=== PATIENT | male | born 1960 | race Caucasian/White ===

== ENCOUNTER 2017-01-05 06:42 | Day surgery (SDC) | payer OTHER ==
[2017-01-05] VITALS (10 sets, daily range): BP systolic 112–132; BP diastolic 66–93; PULSE 50–70; RESP 9–16; O2SAT 97–100
[~2017-01-05] VITALS: Ht 174.6 cm; Wt 80.3 kg
[~2017-01-05 06:42] MED LIST: CeFAZolin Inj 2 GM in IV Premix 1 EACH IV ONE; FEXO-123 PO; Lactated Ringer's 1,000 ML IV SCH; MULT-1018 PO; NAPR220C11 PO
[2017-01-05] MEDS ORDERED: Glycopyrrolate 0.2 MG/ML 1mL Inj ONE (06:43)
[2017-01-05] MEDS ORDERED: fentaNYL-PF 50 mCg/mL 20 mL Inj ONE (06:43)
[2017-01-05] MEDS ORDERED: Propofol 10,000 mCg/mL 20 mL Inj ONE (06:43)
[2017-01-05] MEDS ORDERED: Ondansetron 2 mg/mL 2 mL Inj ONE (06:43)
[2017-01-05] MEDS ORDERED: Dexamethasone 4 mg/mL Inj ONE (06:43)
[2017-01-05] MEDS ORDERED: Lactated Ringer's 1,000 ML IV ONE (08:56)
--- NOTE | 2017-01-05 11:04 | PCM.HPANE ---
Patient Data Surgeon Admitting Provider: Attending Provider:Prudencio Gutierrez MD Primary Care Physician:Victor Hugo Other Provider: Reason for Visit Left Knee Acl Tear Ht/WT & BMI Height (Feet): 5 Height (Inches): 8.75 Weight (Kilograms): 80.286 Body Mass Index 26.00 Allergies Coded Allergies: No Known Allergies (Unverified , 12/30/16) Past Anesthesia History Anesthesia History: Denies:: Anesthesia Reactions, Malignant Hyperthermia Diabetes History Hx Diabetes?: No MRSA MRSA: No Medications Hypertension Medication: No Home Meds Incl Beta Anselmo: No Reported Medications Multivitamin (Multi Vitamin Daily)1 Each Tablet1 Each PO DAILY 30 Days Ref 0 12/30/16 Fexofenadine (Aller-Ease)60 Mg [id number] Mg PO BID 12/30/16 Naproxen Sodium (Aleve)220 Mg [id number] Mg PO BID PRN PRN 12/30/16 History History of ENT Problems?: Yes HEENT History: Positive for:: Sinus Problem (allergic rhinitis hx recurrent epistaxis) Hx of Heart Problems?: No Cardiovascular History: Denies:: Heart Murmur Hypertension Other Cardiac History: > 4 METS Hx of Respiratory Problem?: No Respiratory History: Denies:: Use of C-PAP Machine Hx Neurologic Problems?: No Hx of GI Problems?: Yes Other GI Pertinent History: S/P APPY,RT INGUINAL HERNIA RPR Hx of Problems?: Yes Other Pertinent History: HX OF ED Male Hx: Denies:: Prostate Problems Scrotal Mass Testicular Surgery Skin History: Positive for:: History Skin Disorders? (S/P EXC LIPOMA ??SITE ) Denies:: Pressure Ulcers Hx Musculoskeletal Problems?: Yes Musculoskeletal History: Positive for:: Musculoskeletal Trauma (HX FX TOES LT KNEE ACL TEAR/LT PARTIAL MENISCUS TEAR=CURRENT PROBLEM) Hx of Psycho/Social Problems?: No Hx Surgeries?: Yes (EXC. LIPOMA,APPY,RT INGUINAL HERNIA RPR) Hx Any Other Health Problems?: Yes Other History: Denies:: Cancer Endocrine Disease Hospitalization Thyroid Disease Hx Diabetes: No Hx Substance Use: NoHave You Smoked inLast 12 mo: No Stop/Bang S-Snoring: Do You Snore Loudly: No T-Tired: feel tired, fatigued: No O-Obsered: Observed not breath: No P-Blood Pressure: treated: No B- Body Mass Index > 35 kg/m2: No A- Age over 50: Yes N- Neck Large Circumference: No G- Gender Male: Yes BEKA Total Score: 2 BEKA Risk Assessment: Low Risk, <3 Yes Risk Assessment Category Category 1A: Patient has history of documented sleep apnea, and HAS NOT received any narcotic, sedative or anesthesia administration during this stay. Category 1B: Patient has history of documented sleep apnea, and HAS received any narcotic , sedative or anesthesia administration during this stay Category 2: Patient has SUSPECTED Obstructive Sleep Apnea, and HAS received any narcotic , sedative or anesthesia administration during this stay. Category 3: Patient has SUSPECTED Obstructive Sleep Apnea and HAS NOT received narcotic, sedative or anesthesia administration during this stay. Category 4: Outpatient in Procedural Areas with known sleep apnea or who screen positive for High Risk via the STOP/BANG questionnaire. Exam Exam Vital Signs Vital Signs Date Time Temp Pulse Resp B/P Pulse Ox O2 Delivery O2 Flow Rate FiO2 01/05/17 08:49 35.9 50 14 112/66 98 Room Air General Appearance: Alert, Oriented X3, Cooperative, No Acute Distress HEENT/AIRWAY: MP 1 Lungs: Clear to Auscultation, Normal Air Movement Heart: Exam Unremarkable, Regular Rate/Rhythm, No Murmurs/Rubs/Gallops Meds/Labs/Diagnostics Admission Meds Current Medications Lactated Ringer's (Lr) 1,000 ml @ ud STK-MED ONCE IV Last administered on 01/05t 08:56; Start 01/05/17 at 08:56; Stop 01/05/17 at 08:57; Status DC Plan Impression Patient chart reviewed, patient interviewed and anesthestic plan with risks, benefits, and alternatives discussed, and informed consent obtained. NPO Status: 01/04@1800 ASA Physical Status: ASA1 Normal Healthy Anesthetic Plan: GA, Regional Block (AC block) Bene/Risks/Altern/Consents: Yes HP Complete Prior to Induction: Yes Maxwell Chavez MD Jan 05, 2017 09:36
[2017-01-05] MEDS ORDERED: Ondansetron 2 mg/mL 2 mL Inj IVPUSH PRN (11:05)
[2017-01-05] MEDS ORDERED: HYDROmorphone 1 mg/mL Inj IVPUSH PRN (11:05)
[2017-01-05] MEDS ORDERED: Lactated Ringer's 500 ML IV PRN (11:05)
[2017-01-05] MEDS ORDERED: fentaNYL-PF 50 mCg/mL 2 mL Inj IVPUSH PRN (11:05)
[2017-01-05] MEDS ORDERED: Labetalol 5 mg/mL 4 mL Inj IV PRN (11:05)
[2017-01-05] MEDS ORDERED: Lactated Ringer's 1,000 ML IV SCH (11:05)
[2017-01-05] MEDS ORDERED: Phenylephrine 10,000 mCg/mL Inj IVPUSH PRN (11:05)
[2017-01-05] MEDS ORDERED: Atropine 0.4 mg/mL Inj IVPUSH PRN (11:05)
[2017-01-05] MEDS ORDERED: MetoCLOpramide 5 mg/mL 2 mL Inj IVPUSH PRN (11:05)
[2017-01-05] MEDS ORDERED: EPHEDrine Sulfate 50 mg/mL Inj IVPUSH PRN (11:05)
[2017-01-05] MEDS ORDERED: Ropivacaine-PF 0.5% 30 mL Inj INFILTRATE ONE (12:06)
[2017-01-05] MEDS ORDERED: HYDROcodone-APAP 5-325 mg Tablet PO PRN (12:25)
--- NOTE | 2017-01-05 12:38 | PCM.ORTHOP ---
Orthopedic Operative Report Date of Service: Jan 05, 2017 Pre Operative Diagnosis Left knee anterior cruciate ligament tear, medial meniscus tear Post Operative Diagnosis Same Procedure Left knee arthroscopy, partial medial meniscectomy, anterior cruciate ligament reconstruction with tibial anterior allograft, chondroplasty, partial synovectomy Surgeon Surgeon: Prudencio Gutierrez MD Assistants: Wilber Lnogo Indication for Procedure Left knee anterior cruciate ligament tear Findings Per dictation Details of Procedure PROCEDURE: 1. Surgical arthroscopy of the left knee with anterior cruciate ligament reconstruction with tibialis anterior allograft. Fixation is an Arthrex endobutton and a 8-10 bio IntraFix. 2. partial medial meniscectomy 3 Limited chondroplasty 4. Partial synovectomy, MAJOR ASSEMBLY INSPECTOR SURGEON: During the operation, the services of a physician surgical garment assembly supervisor were medically indicated and necessary to provide exposure of the operative site for the surgical procedure and to maintain the limb in a proper position to carry out the operation safely and efficiently. Without the qualified hair or beauty salon assistant being present, it would have extended the operative procedure and made the procedure technically more difficult to perform. INDICATIONS: The patient is Tyler Adkins who is a 56-year-old male patient with a prolonged history of left knee giving way. The patient has had continued episodes of instability. The patient has restored their range of motion and is now brought to the operating room for ACL reconstruction, possible partial medial and lateral meniscectomy versus medial and lateral meniscal repair, chondroplasty and debridement. The risks, benefits, and alternatives of surgery were discussed with the patient. The risks included but were not limited to infection, bleeding, damage to vessels and nerves, loss of motion, continued pain, re-tear of the meniscus, deep venous thrombosis, and complications due to anesthesia including nerve injury, myocardial infarction, stroke, , etc. The patient stated understanding of the nature of the surgical procedure and gave written and verbal consent to proceed. PROCEDURE: The patient was brought to the operating room and placed supine on the operating room table. General anesthesia was induced and an adductor canal block was placed. The left lower extremity was examined under anesthesia. Range of motion was 0 degrees of hyperextension to 135 degrees of flexion. There was no varus or valgus or posterolateral instability. The patient had no instability to varus or valgus stress at 0 or 30 degrees. The patient had a 2+ Asuncion and drawer with a positive pivot shift. The left lower extremity was then prepped and draped in the usual fashion. A tourniquet was placed proximally on the thigh over a bias stockinette. A standard anterolateral parapatellar stab wound was created. The knee joint was entered with a blunt-tipped obturator, followed by the 30-degree video arthroscope. An anteromedial portal was established under arthroscopic control. A routine arthroscopic survey was performed. The suprapatellar pouch was unremarkable. The undersurface of the patella was well-preserved with grade 1/2 chondromalacia. The patella appeared to track centrally within the trochlear groove. The medial and lateral gutters were inspected and there was no loose body seen. There was no hypertrophied plica. The popliteal hiatus was entered and was unremarkable. The lateral compartment was entered. The articular surfaces of the lateral femoral condyle was largely well maintained. There was no chondromalacia adjacent to the notch. There was no chondromalacia along the central aspect of the weight bearing lateral tibial plateau. The lateral meniscus was intact and stable to probing. The intercondylar notch was visualized. The anterior cruciate ligament was torn from it's femoral origin. There was an empty lateral wall. Posteromedially there was no loose body seen. The posterior cruciate ligament was visualized and appeared intact. The medial compartment was entered. The articular surfaces of the medial femoral condyle and medial tibial plateau were visualized. There was garde 2/3 chondromalacia noted on the medial femoral condyle and on the medial tibial plateau. The medial meniscus was visualized and a posterior horn horizontal degenerative meniscus tear was noted. A partial meniscectomy was performed with the shaver and biter. Attention was turned to reconstruction of the anterior cruciate ligament. Following exsanguination with an Esmarch bandage the tourniquet was inflated to 250 mm of mercury. Using a motorized shaver a notchplasty was performed, exposing the lateral wall and roof of the notch, identifying the teft-hcq-dge position. The stump of the anterior cruciate ligament was debrided. An Arthrex guide was placed intra-articularly between the tibial spines in line with the anterior horn of the lateral meniscus. A John wire was then inserted into the knee through a 2 cm incision made over the proximal medial tibia. The incision was deepened through the subcutaneous tissue with subperiosteal dissection achieved. Bleeding points were coagulated with the Bovie electrocautery. A fresh frozen tibialis allograft was opened and prepared at the back table, accommodating a 9.5 mm graft on the femoral side and 9.5 mm graft on the tibial side. Tibial drilling was then carried out first with a 5 mm followed by a 10 mm cylindrical reamer with the guide set at 55 degrees. The Beath pin was drilled out the femoral cortex and skin. The femoral tunnel was then created,with an Arthrex flipcutter. Depth-gauging confirmed a tunnel length of 40 mm. An Arthrex EndoButton was selected. The graft was inserted intra-articularly and the EndoButton was deployed. The graft was cycled for 17 cycles with 25 pounds of force to pre-load the graft. Tibial fixation was carried out using a 8-10 PEEK Intra-Fix in 10 degrees of flexion with a posterior drawer. At the completion of surgery the patient had a firm stable Asuncion. The patient had a 0 firm Asuncion and a negative pivot shift. There was no evidence for any roof or lateral wall impingement. The tourniquet was deflated at 40 minutes. The knee was irrigated with two liters of lactated Ringer's solution. Excess fluid was drained. The tibial wounds were then copiously irrigated with bacitracin solution and closed in layers with #0, #2-0 and #3-0 Vicryl. The skin was reapproximated with #4-0 Monocryl. The knee was injected with 20 cc of 0.5% plain ropivacaine and 4 mg of Duramorph. A dry sterile dressing was applied, followed by a bulky bandage and LANA stocking. A postoperative TROM brace was applied locked in full extension. The patient was awakened in the Operating Room and transported to the Recovery Room in satisfactory condition. The patient appeared to tolerate the procedure well. At the completion of surgery the patient had soft compartments, palpable pulses, and brisk capillary refill. There were no complications noted. Please keep dressing clean dry and intact. Do not remove dressing until follow- up in clinic. If the dressing become soaked, you may remove the outer gauze and placed Band-Aids on the wounds. You may weight-bear as tolerated with the brace on at all times. Do Not Bend Your Knee. You may place a pillow under your heel and NOT your knee. You will follow up in clinic in 10-14 days for suture removal, and placement of new Steri-Strips. You will follow-up with me in clinic, and we will start physical therapy. You will follow-up with my PA every 6 weeks while you progress in your rehab and will be released once cleared by PT around 9-12 months. Please see me prior to full release. Please keep the affected extremity elevated when possible. Please take aspirin as insructed if prescribed. You will take antibiotics 4 times daily for 3 days. You may use ice and/or heat as needed for comfort. (preferably ice during the first 48-72 hours Please feel free to call with any further questions, comments , and/or concerns. Grafts, Implants: Implants-See Implant Record Complications There were no periprocedural complications identified. Condition Stable Anesthetic Administered: GA Catheters: None Output, Estimated Blood Loss: 15 Blood Admin during surgery: No Surgical Cast or Splint: Knee Immobilizer Surgical Specimen Removed: No Specimen sent to Pathology: No copies to: Prudencio Gutierrez MD, Christopher L MD Jan 05, 2017 12:38
--- NOTE | 2017-01-05 12:54 | PCM.ANEP1 ---
Post Anesthesia Phase 1 PACU Phase 1 Assessment Date of Service: Jan 05, 2017 Vital Signs Vital Signs Date Time Temp Pulse Resp B/P Pulse Ox O2 Delivery O2 Flow Rate FiO2 01/05/17 12:50 63 13 118/85 100 Room Air 01/05/17 12:45 36.0 66 15 126/76 99 Room Air 01/05/17 12:35 64 13 126/76 100 Room Air 01/05/17 12:30 66 12 125/84 99 Room Air 01/05/17 12:25 65 9 128/75 100 Room Air 01/05/17 12:22 36.4 68 12 118/71 100 Room Air 01/05/17 08:49 35.9 50 14 112/66 98 Room Air Anesthetic Administered: GA, Regional Block Level of Alertness: Awake, talking VILLAVICENCIO's with Equal Strength: Yes Pain: No Nausea or Vomiting: No Oxygen Delivery: Simple Mask Lungs: Clear to Auscultation, Normal Air Movement Maxwell Chavez MD Jan 05, 2017 12:54
--- NOTE | 2017-01-05 12:56 | PCM.ANEP2 ---
Post Anesthesia Evaluation ASA/CMS Post Anesthesia VS in Patient's Normal Range?: Yes Resp Stable; Airway Patent?: Yes CV Function & Hydration Stable: Yes Mental Status Recovered?: Yes Pain control Satisfactory?: Yes N/V Control Satisfactory?: Yes Additional Comments Comfortable, doing well. Ready for phase II Maxwell Chavez MD Jan 05, 2017 12:56
== END 2017-01-05 23:59 | disposition home or self-care (01) ==
LOC: SAS 06:42
PROVIDERS: ATTEND Orthopaedic Surgery
DX: M23.612 Other spontaneous disruption of anterior cruciate ligament of left knee (principal); M23.222 Derangement of posterior horn of medial meniscus due to old tear or injury, left knee; M22.42 Chondromalacia patellae, left knee; X50.1XXA Overexertion from prolonged static or awkward postures, initial encounter; Y93.9 Activity, unspecified; Y92.9 Unspecified place or not applicable; Y99.9 Unspecified external cause status
CPT/HCPCS: 29881; 29888; C1713; C1762; J0690; J1100; J1885; J2250; J2405; J2795; J3010; J7120